=== PATIENT | female | born 1965 | race Caucasian/White ===

== ENCOUNTER 2024-07-21 06:18 | Day surgery (SDC) | payer BC ==
[2024-07-21] MEDS ORDERED: Propofol 200 MG/20 ML SDV ONE (07:24)
[2024-07-21] MEDS ORDERED: fentaNYL 50 MCG/ML SDV ONE (07:24)
[2024-07-21] MEDS ORDERED: Midazolam 1 MG/ML 2 ML SDV ONE (07:24)
[2024-07-21] MEDS: Sodium Chloride 0.9% 1,000 ML IV SCH (07:25)
== END 2024-07-21 09:12 | disposition home or self-care (01) ==
LOC: JP.SDS 06:18
PROVIDERS: ATTEND Surgery
DX: Z12.11 Encounter for screening for malignant neoplasm of colon (principal); K57.30 Diverticulosis of large intestine without perforation or abscess without bleeding; R19.5 Other fecal abnormalities; I10 Essential (primary) hypertension; K21.9 Gastro-esophageal reflux disease without esophagitis
CPT/HCPCS: J2250; J2704; J3010; J7030